=== PATIENT | female | born 1965 | race Caucasian/White ===

== ENCOUNTER 2017-03-15 11:47 | Observation (INO) ==
[2017-03-15] MEDS ORDERED: SALINE FLUSH 10ml SYRINGE IVF PRN (12:00)
--- NOTE | 2017-03-15 12:08 | Emergency Department Report ---
General Adult HPI - General Chief complaint: Medical Emergency Stated complaint: poss brain bleed Time Seen by Provider: 03/15/17 11:52 Source: patient Mode of arrival: ambulatory Limitations: no limitations - History of Present Illness HPI narrative: 51-year-old female presents to the emergency department with a chief complaint of pulling a patch of hair from the back of her head and causing bleeding. Patient was released from the [facility] earlier today. She denies any current pain or discomfort. She denies homicidal/suicidal ideation or plan. She denies self injury or self-harm other than the above. She does not note any exacerbating or remitting factors. She has no other complaints or associated symptoms. Patient was noted to be acting erratic in the waiting area. - Related Data Home Medications Medication Instructions Recorded Confirmed Buspirone [Buspar] 7.5 mg PO BID 03/15/17 03/15/17 FLUoxetine [Prozac] 20 mg PO DAILY 03/15/17 03/15/17 hydroCHLOROthiazide 12.5 mg PO HS 03/15/17 03/15/17 [Hydrochlorothiazide] Allergies Allergy/AdvReac Type Severity Reaction Status Date / Time No Known Allergies Allergy Verified 03/15/17 11:53 Review of Systems Constitutional: Denies: fever, chills Eyes: Denies: eye pain, vision change ENT: Denies: ear pain, throat pain Cardiovascular: Denies: chest pain, palpitations Respiratory: Denies: cough, dyspnea Gastrointestinal: Denies: abdominal pain, nausea, vomiting, diarrhea Genitourinary: Denies: urgency, dysuria Musculoskeletal: Denies: back pain, arthralgia Integumentary: Denies: erythema, rash Neurological: Denies: headache, numbness Psychiatric: Denies: anxiety, depression Endocrine: Denies: fatigue, heat or cold intolerance Hematological/Lymphatic: Denies: easy bleeding, easy bruising Allergic/Immunologic: Denies: facial swelling, urticaria PFSH Patient Stated Medical History Hypertension Yes: hx of Bipolar Disorder Yes Depression Yes Substance Use Disorder Yes Surgical History: Cardiac cath Family History: Reviewed and noncontributory. - Social History Smoking status: Current every day smoker Substance use type: former substance user Alcohol intake frequency: does not drink Physical Exam - Limitations Limitations: no limitations - General General appearance: alert, in no apparent distress - Normal Exams: Head:: Normocephalic without trauma Eyes:: Pupils are PERRLA w/ EOMI, No scleral icterus, irritation, or foreign bodies noted ENMT:: No facial trauma, nasal exudates, pharyngeal erythema, or exudates are noted Dental: No fractured, loose, or missing teeth noted Neck:: Full range of motion, without adenopathy, JVD, bruits or thyromegaly Chest/Respirations:: Clear all meier, with good airflow, and symmetry bilaterally Cardiovascular:: Regular rate and rhythm, without murmur or gallop, Pulses 2+ all extremities, capillary refill, <2 seconds all extremities Abdomen:: Bowel sounds positive, soft, non-tender, non-distended, no hepatosplenomegaly, masses or bruits noted Lymphatic:: No lymphadenopathy, or lymphedema noted Musculoskeletal:: No tenderness, or deformity noted, good range of motion, all extremities Integumentary:: No rashes, hives, or bruising noted, hair and nails, without abnormality Neurological:: Patient is alert, and oriented, cranial nerves, motor/sensory/ cerebellar, exams w/o gross deficits, to observation Psychiatric:: Patient exhibits (Restless. + Hallucinations. ) Course Vital Signs Temperature 98.1 F 03/15/17 11:53 Pulse Rate 89 03/15/17 11:53 Respiratory Rate 19 03/15/17 11:53 Blood Pressure 118/85 03/15/17 11:53 Pulse Oximetry 98 03/15/17 11:53 Temperature 98.4 F 03/17/17 17:27 Pulse Rate 100 03/17/17 17:27 Respiratory Rate 24 03/17/17 17:27 Blood Pressure 138/71 03/17/17 15:10 Pulse Oximetry 98 03/17/17 17:27 Medical Decision Making - [facility] Narrative Medical decision making narrative: Labs/imaging were discussed in detail with the patient and shot bagger and questions are answered. Patient did have a intracranial hemorrhage in approximately August or September of this year and did not follow up to ensure resolution or worsening of condition. Patient states that she is concerned that she may be having an other intracranial hemorrhage she did not follow-up for the 1st one. CT head was unremarkable. Patient is medically clear for further treatment and evaluation at a psychiatric facility as she appears to be acutely psychotic. Potassium was supplemented appropriately in the emergency department. Patient is not able to care for herself or meet her daily needs. Patient's shot bagger is present at bedside and in agreement. [facility] is contacted for screening of the patient at 1420. [facility] from [facility] makes it to the emergency department to screen the patient at approximately 1700. Patient is voluntary at this time and agrees to be [facility] after she [facility] on the wait list. At approximately 1840, [facility] reveals that the patient is far down on the wait list for [facility] and will possibly be in the emergency department until Saturday or Saturday. At this point the patient is admitted to the service of the hospitalist Dr. Everett after discussion with Dr. Ovalle. Patient is admitted to the hospital in improved condition. Patient is voluntary at this time. Patient was admitted to the medical floor at [address] Everett requested to have the night hospitalist take the admission. After being admitted to the hospital patient decided she was no longer voluntary and attempted to leave [facility]. [facility] was contacted and involuntary screen for [place] was processed. Patient is waiting for transfer to psychiatric hospital and is currently medically clear for further evaluation and treatment by a psychiatric facility. - Differential Diagnosis anxiety, acute psychosis, metabolic disorder, substance abuse - Lab Data Result diagrams: 03/15/17 12:07 03/16/17 09:03 Lab Results 03/15/17 03/15/17 03/15/17 Range/Units 12:07 12:07 14:06 WBC 11.3 H (4.5-11.0) T/MM3 RBC 4.06 (4.00-5.20) M/MM3 Hgb 13.2 (12-16) GM/DL Hct 35.8 L (36-46) % MCV 88.2 (80-100) UM3 MCH 32.5 (26-34) UUG MCHC 36.9 (31-37) GM/DL RDW Std Deviation 39.8 (36.9-50.2) FL Plt Count 399 (130-400) T/MM3 MPV 8.5 L (9.4-12.4) UM3 Immature Gran % (Auto) Not performed Neut % (Auto) Not performed Lymph % (Auto) Not performed [place] % (Auto) Not performed Eos % (Auto) Not performed Baso % (Auto) Not performed Neut # (Auto) Not performed Lymph # (Auto) Not performed [place] # (Auto) Not performed Eos # (Auto) Not performed Baso # (Auto) Not performed Abs Immat Gran (auto) Not performed Neutrophils % (Manual) 65.0 (33-66) % Band Neutrophils % 1.0 (0-6) % Lymphocytes % (Manual) 26.0 (23-45) % Monocytes % (Manual) 7.0 (0-9.0) % Eosinophils % (Manual) 1.0 (0-4) % Neutrophils # (Manual) 7.3 (1.8-7.7) T/MM3 Band Neutrophils # 0.1 T/MM3 Lymphocytes # (Manual) 2.9 (1-4.8) T/MM3 Monocytes # (Manual) 0.8 (0-0.8) T/MM3 Eosinophils # (Manual) 0.1 (0-0.5) T/MM3 RBC Morph Comment Normal Turbidity < 20 (0-20) Sodium 131 L (134-144) MEQ/L Potassium 3.0 L (3.6-5) MEQ/L Chloride 90 L (98-107) MEQ/L Carbon Dioxide 30 (22-30) MEQ/L Anion Gap 11 (5-15) MEQ/L BUN 7.0 (7-17) MG/DL Creatinine 0.6 L (0.7-1.2) MG/DL GFR Calculation 106 BUN/Creatinine Ratio 12 (6-26) RATIO Glucose 79 (65-110) MG/DL Calculated Osmolality 250 L (261-280) MOSM/KG Calcium 9.6 (8.4-10.2) MG/DL Total Bilirubin 0.70 (0.20-1.30) MG/DL Icterus Index < 2 (0-7) AST 95 H (14-36) U/L ALT 88 H (9-52) U/L Alkaline Phosphatase 63 (38-126) U/L Total Protein 7.4 (6.3-8.2) G/DL Albumin 4.6 (3.5-5.0) G/DL Globulin 2.8 (2.4-3.6) G/DL Albumin/Globulin Ratio 1.6 (1.1-2.2) RATIO TSH 0.36 L (0.47-4.68) MIU/L Specimen Hemolysis < 15 (0-25) Ur Collection Type Urine, clean catch Urine Color Yellow (YELLOW) Urine Clarity Sl cloudy Urine pH 6.0 (5.0-8.0) Ur Specific [place] <=1.005 L (1.015-1.025) Urine Protein Negative (NEGATIVE) Urine Glucose (UA) Negative (NEGATIVE) Urine Ketones 1+ A (NEGATIVE) Urine Occult Blood Negative (NEGATIVE) Urine Nitrate Negative (NEGATIVE) Urine Bilirubin Negative (NEGATIVE) Urine Urobilinogen 0.2 (NORMAL) EU/DL Ur Leukocyte Esterase Negative (NEGATIVE) Urinalysis Comment Microscopic not ind. Urine Test (Negative) Salicylates < 1.0 L (2-20) MG/DL Urine Opiates Screen ng/mL Ur Oxycodone Screen ng/mL Urine Methadone Screen ng/mL Ur Propoxyphene Screen ng/mL Acetaminophen < 10 L (10-30) UG/ML Ur Barbiturates Screen ng/mL U Tricyclic Antidepress ng/mL Ur Phencyclidine Scrn ng/mL Ur Amphetamines Screen ng/mL U Methamphetamines Scrn ng/mL U Benzodiazepines Scrn ng/mL Urine Cocaine Screen ng/mL U Cannabinoids Screen ng/mL Alcohol, Quantitative <10 (<10) MG/DL 03/15/17 03/15/17 Range/Units 14:06 14:06 WBC (4.5-11.0) T/MM3 RBC (4.00-5.20) M/MM3 Hgb (12-16) GM/DL Hct (36-46) % MCV (80-100) UM3 MCH (26-34) UUG MCHC (31-37) GM/DL RDW Std Deviation (36.9-50.2) FL Plt Count (130-400) T/MM3 MPV (9.4-12.4) UM3 Immature Gran % (Auto) Neut % (Auto) Lymph % (Auto) [place] % (Auto) Eos % (Auto) Baso % (Auto) Neut # (Auto) Lymph # (Auto) [place] # (Auto) Eos # (Auto) Baso # (Auto) Abs Immat Gran (auto) Neutrophils % (Manual) (33-66) % Band Neutrophils % (0-6) % Lymphocytes % (Manual) (23-45) % Monocytes % (Manual) (0-9.0) % Eosinophils % (Manual) (0-4) % Neutrophils # (Manual) (1.8-7.7) T/MM3 Band Neutrophils # T/MM3 Lymphocytes # (Manual) (1-4.8) T/MM3 Monocytes # (Manual) (0-0.8) T/MM3 Eosinophils # (Manual) (0-0.5) T/MM3 RBC Morph Comment Turbidity (0-20) Sodium (134-144) MEQ/L Potassium (3.6-5) MEQ/L Chloride (98-107) MEQ/L Carbon Dioxide (22-30) MEQ/L Anion Gap (5-15) MEQ/L BUN (7-17) MG/DL Creatinine (0.7-1.2) MG/DL GFR Calculation BUN/Creatinine Ratio (6-26) RATIO Glucose (65-110) MG/DL Calculated Osmolality (261-280) MOSM/KG Calcium (8.4-10.2) MG/DL Total Bilirubin (0.20-1.30) MG/DL Icterus Index (0-7) AST (14-36) U/L ALT (9-52) U/L Alkaline Phosphatase (38-126) U/L Total Protein (6.3-8.2) G/DL Albumin (3.5-5.0) G/DL Globulin (2.4-3.6) G/DL Albumin/Globulin Ratio (1.1-2.2) RATIO TSH (0.47-4.68) MIU/L Specimen Hemolysis (0-25) Ur Collection Type Urine Color (YELLOW) Urine Clarity Urine pH (5.0-8.0) Ur Specific [place] (1.015-1.025) Urine Protein (NEGATIVE) Urine Glucose (UA) (NEGATIVE) Urine Ketones (NEGATIVE) Urine Occult Blood (NEGATIVE) Urine Nitrate (NEGATIVE) Urine Bilirubin (NEGATIVE) Urine Urobilinogen (NORMAL) EU/DL Ur Leukocyte Esterase (NEGATIVE) Urinalysis Comment Urine Test Negative (Negative) Salicylates (2-20) MG/DL Urine Opiates Screen Negative ng/mL Ur Oxycodone Screen Negative ng/mL Urine Methadone Screen Negative ng/mL Ur Propoxyphene Screen Negative ng/mL Acetaminophen (10-30) UG/ML Ur Barbiturates Screen Negative ng/mL U Tricyclic Antidepress Negative ng/mL Ur Phencyclidine Scrn Negative ng/mL Ur Amphetamines Screen Negative ng/mL U Methamphetamines Scrn Negative ng/mL U Benzodiazepines Scrn Negative ng/mL Urine Cocaine Screen Negative ng/mL U Cannabinoids Screen Negative ng/mL Alcohol, Quantitative (<10) MG/DL - Radiology Data CT head: No acute processes. Disposition Clinical Impression: ACUTE PSYCHOSIS Disposition: 02 To [facility] Condition: Stable Time of Disposition: 18:30 (Admit. Dr. Joseph/Karlos.) - Seen By: physician
--- NOTE | 2017-03-15 14:38 | CT Scan Report ---
EXAM: CT head/brain wo con DATE: 03/15/2017 12:00 AM ENCOUNTER: Initial INDICATION: Hx bleeding COMPARISON: None available. TECHNIQUE: 5 mm axial tomographic images were obtained of the head without contrast. The current CT scan was performed using radiation dose-reduction techniques. FINDINGS: The tejeda-white matter junction is normal. No intra or extra-axial mass or hemorrhage is identified. There is no midline shift. Ventricles are normal in size, shape, and morphology. The basilar cisterns are patent. No acute osseous or soft tissue abnormality. The visualized paranasal sinuses are normal. The visualized portions of the orbits and globes are normal. The mastoid air cells are clear. IMPRESSION: No acute intracranial process identified by CT. .
[2017-03-15] MEDS ORDERED: ACETAMINOPHEN 500 MG TABLET PO PRN (18:00)
[2017-03-15] MEDS ORDERED: HALOPERIDOL 5 MG/ML INJECTION IVP PRN (20:45)
[2017-03-15] MEDS ORDERED: IBUPROFEN 600 MG TABLET PO PRN (20:45)
[2017-03-15] MEDS ORDERED: ONDANSETRON 4 MG/2 ML INJECTION IVP PRN (20:45)
[2017-03-15] MEDS ORDERED: HALOPERIDOL 5 MG/ML INJECTION IM SCH (20:45)
--- NOTE | 2017-03-15 20:48 | History & Physical Report ---
History of Present Illness Date: 03/15/17 Chief complaint: none by patient, confusion per police HPI: Please note that the patient was seen via telemedicine with nursing assistance on 03/15/2017 Ms. Vick is a 51yo woman with h/o ?schizoaffective disorder and polysubstance abuse with tobacco and amphetamines who presents from the police department where she was incarcerated for battery. She was released and brought to the ED , please see Dr. Titus's documentation. The patient has inconsistent answers to questions and is not currently cooperative. I was asked to urgently beam on to see her for combativeness/inability to cooperate and police are now present to ensure staff safety. When asked about pain, nausea, and sob she says " I have all of it." She cannot tell me the day of the week or even month, thinking it is the 11th month. In the ED she received tylenol and 40meq KCL. She cannot tell me how long she was in detention after the battery and charge. Note the patient denies hallucinations on my review, but she was talking to visual hallucinations in the ED. Review of Systems Review of systems: unable to completely obtain. [facility] Medical History Updates: schizoaffective disorder Surgical History: Cardiac cath Family History Updates: incomplete due to psychosis - Social History Smoking status: Current every day smoker Substance use type: methamphetamine Medications Home Medications Medication Instructions Recorded Confirmed Type Buspirone [Buspar] 7.5 mg PO BID 03/15/17 03/15/17 History FLUoxetine [Prozac] 20 mg PO DAILY 03/15/17 03/15/17 History hydroCHLOROthiazide 12.5 mg PO HS 03/15/17 03/15/17 History [Hydrochlorothiazide] Allergies Allergy/AdvReac Type Severity Reaction Status Date / Time No Known Allergies Allergy Verified 03/15/17 11:53 Exam Vital Signs: Temperature 98.1 F 03/15/17 11:53 Pulse Rate 112 H 03/15/17 19:48 Respiratory Rate 19 03/15/17 11:53 Blood Pressure 118/85 03/15/17 11:53 Pulse Oximetry 96 03/15/17 19:48 Telemetry Rhythm: Sinus Rhythm - Constitutional Present: well developed, thin, disheveled, combative, agitated - Routine HEENT Exam Head: Present: normocephalic Eye: Present: EOMI - Routine Neck Exam Present: full ROM - Routine Respiratory Exam Absent: accessory muscle use, respiratory distress - Routine Cardiovascular Exam Comments: cannot complete this nor most of the exam due to psychosis and combativeness - Routine Extremities Exam Absent: cyanosis, clubbing - Routine Skin Exam Comments: picking changes it appears by remote exam Results - Labs CBC & Chem 7: 03/15/17 12:07 03/15/17 12:07 Assessment and Plan (1) Schizoaffective disorder Current visit: Yes Status: Acute (2) Psychosis Current visit: Yes Status: Acute (3) Hypokalemia Current visit: Yes Status: Acute Assessment and Plan: 1. Acute psychosis with h/o likely schizoaffective disorder--obs admit as should go to [facility] once bed available. Haldol and Ativan IM now with restraints and sitter needed. No definite encephalopathy evident with no infection and UDS negative at this point. Order prior medications for now. 2. Hypokalemia with HCTZ for ? K supp and repeat AM labs 3. Abnormal TSH, check T4 as ? hyperthyroidism also. Hospital Course Summary Disclaimer: The visit summary below is not to be considered part of the above Progress Note.
[2017-03-15] MEDS: BUSPIRONE 5 MG TABLET PO SCH (21:00)
[2017-03-15] MEDS: NS with KCL 20 mEq 1,000 ML IV SCH (21:01)
[2017-03-15] MEDS ORDERED: HALOPERIDOL 5 MG/ML INJECTION IM PRN (22:56)
[2017-03-15] MEDS ORDERED: HALOPERIDOL 0.5 MG TABLET PO PRN (23:02)
[2017-03-16 01:20] VITALS: BMI 20.3
[2017-03-16] MEDS ORDERED: HALOPERIDOL 5 MG/ML INJECTION IM ONE (06:30)
[2017-03-16] MEDS: NS with KCL 20 mEq 1,000 ML IV SCH (06:43)
[2017-03-16] MEDS: BUSPIRONE 5 MG TABLET PO SCH ×2 (10:12→21:10)
[2017-03-16] MEDS: FLUoxetine 20 MG CAPSULE PO SCH (10:12)
[2017-03-16] MEDS: ACETAMINOPHEN 325 MG TABLET PO PRN (10:13)
[2017-03-16] MEDS ORDERED: HALOPERIDOL 1 MG TABLET PO PRN (14:15)
[2017-03-16] MEDS: HALOPERIDOL 1 MG TABLET PO PRN (14:17)
[2017-03-16] MEDS: NICOTINE 21 MG PATCH TD SCH (14:17)
[2017-03-17] MEDS: HALOPERIDOL 1 MG TABLET PO PRN ×2 (03:43→13:37)
[2017-03-17] MEDS: NICOTINE 21 MG PATCH TD SCH (09:47)
[2017-03-17] MEDS: BUSPIRONE 5 MG TABLET PO SCH ×2 (09:47→21:40)
[2017-03-17] MEDS: FLUoxetine 20 MG CAPSULE PO SCH (09:47)
[2017-03-17] MEDS: NICOTINE PATCH REMOVAL TD SCH (09:48)
--- NOTE | 2017-03-17 11:51 | Progress Note ---
- Date 03/17/17 Subjective: Patient sitting in bed. Sitter present. She had one dose of 1 mg Haldol after c/ o anxiety overnight. Wants to know when she can leave. Objective Vital signs: Temperature 95.5 F L 03/17/17 07:00 Pulse Rate 87 03/17/17 07:00 Respiratory Rate 22 03/17/17 07:00 Blood Pressure 132/83 03/17/17 07:00 Pulse Oximetry 98 03/17/17 07:00 Height/Weight/BMI: Height 5 ft 7 in Weight 56.1 kg Body Mass Index 20.3 - Constitutional Present: well nourished, well developed - Routine HEENT Exam Eye: Present: EOMI ENT: Present: mucous membranes moist, dentition normal - Routine Respiratory Exam Present: CTA bilaterally. Absent: wheezes - Routine Cardiovascular Exam Present: RRR. Absent: murmur - Routine Abdominal Exam Present: soft, normoactive bowel sounds, non distended. Absent: tenderness - Routine Extremities Exam Present: normal capillary refill - Routine Skin Exam Present: dry, warm - Routine Neurological Exam Present: alert, oriented X3, CN II-XII intact - Routine Psychiatric Exam Present: anxious Results - Labs CBC & Chem 7: 03/15/17 12:07 03/16/17 09:03 Assessment and Plan (1) Schizoaffective disorder Current visit: Yes Status: Acute (2) Psychosis Current visit: Yes Status: Acute (3) Hypokalemia Current visit: Yes Status: Acute Assessment and Plan: psychosis schizoaffective d/o bipolar d/o hypokalemia abnormal TSH Plan: Haldol and ativan prn. Buspar, prozac scheduled. Dr. Martinez consulted. [facility] has screened and supports involuntary hold. Awaiting bed at [place]. K 3.7 on last lab. Free T4 pending. Medically stable for dismissal Hospital Course Summary Disclaimer: The visit summary below is not to be considered part of the above Progress Note. Hospital Course: 03/17/17 11:57 psychosis schizoaffective d/o bipolar d/o hypokalemia abnormal TSH Plan: Haldol and ativan prn. Buspar, prozac scheduled. Dr. Martinez consulted. [facility] has screened and supports involuntary hold. Awaiting bed at [place]. K 3.7 on last lab. Free T4 pending. Medically stable for dismissal
--- NOTE | 2017-03-17 12:10 | Neuropsychiatric Consult ---
[facility] HPI Date: 03/17/17 Reason for Consultation: Psychosis Start Time: 11:30 Stop Time: 12:00 History of Present Illness: HPI: 51 Y/O CF sent from the prison for increasing psychosis. PT reportedly was responding to internal stimuli on admission and was combative. Attempted to elope at one point. On face to face the pt states she is here because she has a brain bleed and "I can feel it dripping". She states this brain bleed causes confusion and memory impairment. She is some what disorganized and is not able to give a good hx. She denies any S/I but has poor insight into her illness. STRESSORS: "Brain bleed". She reports she has legal issues and has poor support. PSYCH ROS; PT denies feeling depressed but states "I cry alot". She states she does feel anxious at times and becomes visibly anxious when asked about past trauma in her life. PT is paranoid and states "people" are trying to put her in prison and drum up charges against her although she will not elaborate. She reports AH at times. She is disorganized and again difficult to obtain a good hx. PAST PSYCH: PT states she has had numerous hospitalizations since the age of 20 for "psychosis". She has been to [facility] in the past but can not give me any other info. She states she is seen at [facility] where she has a egg caser. SUBSTANCE ABUSE: PT states she has done numerous drugs in the past but has been clean since April but again is vague andnot forth coming about her drug use. [facility] Medical History Updates: schizoaffective disorder Surgical History: Cardiac cath - Social History Smoking status: Current every day smoker Substance use type: former substance user Review of Systems - Psychiatric Psychiatric: Present: anxiety, auditory hallucinations, behavioral changes, depression, paranoia Mental Status Exam Vitals: Last Vital Signs Temp 95.5 F L 03/17/17 07:00 Pulse 87 03/17/17 07:00 Resp 22 03/17/17 07:00 BP 132/83 03/17/17 07:00 Pulse Ox 98 03/17/17 07:00 Height: 1.7 m Weight: 56.1 kg - Mental Status Exam Muscle Strength/Tone: Normal Dressing: Casual Grooming: Good Attitude: Guarded Motor Activity: Retardation Eye Contact: Poor Speech: Slowed Volume: Soft Rhythm: Appropriate Rhythm Orientation: Oriented X4 Mood: Anxious Affect: Anxious Rate of Thoughts: Delayed Thought Organization: Disorganized Associations: Flight of Ideas Abstract Reasoning: Poor abstract reasoning Thought Content: Delusions, Paranoia Perception/Psychotic: Psychotic Current Hallucinations: Auditory Language: Naming Intact Fund of Knowledge: Poor fund of knowledge Memory: Grossly Intact Suicidal Ideation: None Homicidal Ideation: None Insight: Poor Judgement: Poor Impulse Control: Poor - Laboratory Result Diagrams: 03/15/17 12:07 03/16/17 09:03 Assessment and Plan (1) Unspecified schizophrenia, chronic condition with acute exacerbation Current visit: Yes Status: Acute Continue medical management. Pt will need IP psych treatment when deemed medically stable. PT should not be allowed to leave AMA. Would continue current psychiatric meds.
[2017-03-17] MEDS: LORazepam 1 MG TABLET PO PRN (16:02)
[2017-03-17] MEDS: ACETAMINOPHEN 325 MG TABLET PO PRN (17:00)
[2017-03-18] MEDS: NICOTINE 21 MG PATCH TD SCH (08:16)
[2017-03-18] MEDS: BUSPIRONE 5 MG TABLET PO SCH ×2 (08:16→20:39)
[2017-03-18] MEDS: FLUoxetine 20 MG CAPSULE PO SCH (08:16)
[2017-03-18] MEDS: NICOTINE PATCH REMOVAL TD SCH (08:17)
[2017-03-18] MEDS: ALBUTEROL 2.5mg/3ml (0.083%) NEB AEROSOL PRN (10:07)
[2017-03-18] MEDS: LORazepam 1 MG TABLET PO PRN ×2 (13:26→20:39)
--- NOTE | 2017-03-18 16:12 | Progress Note ---
- Date 03/18/17 Subjective: Gaye is pacing in her room. She has been for several walks with staff. She c/o soa earlier and told staff she has an inhaler for COPD at home. She asks to leave. When reminded about the plan for inpatient treatment, she offers to go to [facility] Objective Vital signs: Temperature 97.3 F 03/18/17 15:26 Pulse Rate 98 03/18/17 15:26 Respiratory Rate 18 03/18/17 15:26 Blood Pressure 144/80 H 03/18/17 15:26 Pulse Oximetry 97 03/18/17 15:26 Height/Weight/BMI: Height 5 ft 7 in Weight 59.1 kg Body Mass Index 20.3 - Constitutional Present: well nourished, well developed - Routine HEENT Exam Eye: Present: EOMI ENT: Present: mucous membranes moist, dentition normal - Routine Respiratory Exam Present: CTA bilaterally. Absent: wheezes - Routine Cardiovascular Exam Present: RRR. Absent: murmur - Routine Abdominal Exam Present: soft, normoactive bowel sounds, non distended. Absent: tenderness - Routine Extremities Exam Present: normal capillary refill - Routine Skin Exam Present: dry, warm - Routine Neurological Exam Present: alert, oriented X3, CN II-XII intact - Routine Psychiatric Exam Present: anxious Results - Labs CBC & Chem 7: 03/15/17 12:07 03/16/17 09:03 Assessment and Plan (1) Schizoaffective disorder Current visit: Yes Status: Acute (2) Psychosis Current visit: Yes Status: Acute (3) Hypokalemia Current visit: Yes Status: Acute Assessment and Plan: psychosis schizoaffective d/o bipolar d/o hypokalemia abnormal TSH tobacco abuse COPD Plan: Haldol and ativan prn. Buspar, prozac scheduled. Dr. Martinez consulted. [facility] has screened and supports involuntary hold. Awaiting bed at [place]. K 3.7 on last lab. Free T4 is wnl. Nicotine patch available. Albuterol prn. Can be dismissed with inhaler. Medically stable for dismissal Hospital Course Summary Disclaimer: The visit summary below is not to be considered part of the above Progress Note. Hospital Course: 03/17/17 11:57 psychosis schizoaffective d/o bipolar d/o hypokalemia abnormal TSH Plan: Haldol and ativan prn. Buspar, prozac scheduled. Dr. Martinez consulted. [facility] has screened and supports involuntary hold. Awaiting bed at [place]. K 3.7 on last lab. Free T4 pending. Medically stable for dismissal 03/18/17 16:15 psychosis schizoaffective d/o bipolar d/o hypokalemia abnormal TSH tobacco abuse COPD Plan: Haldol and ativan prn. Buspar, prozac scheduled. Dr. Martinez consulted. [facility] has screened and supports involuntary hold. Awaiting bed at [place]. K 3.7 on last lab. Free T4 is wnl. Nicotine patch available. Albuterol prn. Can be dismissed with inhaler. Medically stable for dismissal
[2017-03-18] MEDS ORDERED: INHALER ASSIST DEVICE (Optichamber) MC ONE (17:45)
--- NOTE | 2017-03-18 18:06 | Neuropsych Progress Note ---
[facility] Subjective Date: 03/18/17 - Sujective/Severity of Illness Medications: Acetaminophen (Tylenol) 325 - 650 mg PO Q5H PRN PRN Reason: Discomfort Last Admin: 03/17/17 17:00 Dose: 650 mg Albuterol Sulfate (Proventil Neb (0.083%)) 2.5 mg AEROSOL Q4H PRN Last Admin: 03/18/17 10:07 Dose: 2.5 mg Albuterol Sulfate (Ventolin Hfa) 2 puff ORAL INH Q4HR PRN PRN Reason: Shortness of air/wheezing Buspirone HCl (Buspar) 7.5 mg PO BID [facility] Last Admin: 03/18/17 08:16 Dose: 7.5 mg Fluoxetine HCl (Prozac) 20 mg PO DAILY [facility] Last Admin: 03/18/17 08:16 Dose: 20 mg Haloperidol (Haldol) 1 mg PO Q6H PRN PRN Reason: agitation, halucinations Last Admin: 03/17/17 13:37 Dose: 1 mg Haloperidol Lactate (Haldol) 2 mg IVP Q1HR PRN Haloperidol Lactate (Haldol) 5 mg IM Q4H PRN Ibuprofen (Motrin) 600 mg PO Q6H PRN PRN Reason: Pain Lorazepam (Ativan Inj) 0.5 mg IM Q4H PRN Lorazepam (Ativan) 1 mg PO Q4H PRN Last Admin: 03/18/17 13:26 Dose: 1 mg Magnesium Hydroxide (Mom) 30 ml PO DAILY PRN PRN Reason: Constipation Last Admin: 03/16/17 14:17 Dose: 30 ml Nicotine (Nicoderm) 21 mg TD DAILY [facility] Last Admin: 03/18/17 08:16 Dose: 21 mg Nicotine (Nicotine Patch Removal) 1 removal TD DAILY [facility] Last Admin: 03/18/17 08:17 Dose: 1 removal Ondansetron HCl (Zofran) 4 mg IVP Q6H PRN PRN Reason: Nausea &/or vomiting Sodium Chloride (Iv Flush) 10 - 80 ml IVF PRN PRN PRN Reason: Flushing Subjective: Pt seen and chart examined. Nursing reports pt has been pacing in her room and is on one to one. On face to face the pt remains disorganized and appears anxious. She is pacing in her room. She denies S/I but remains psychotic . Start Time: 18:00 Stop Time: 18:15 Mental Status Exam Vitals: Last Vital Signs Temp 97.3 F 03/18/17 15:26 Pulse 98 03/18/17 15:26 Resp 18 03/18/17 15:26 BP 144/80 H 03/18/17 15:26 Pulse Ox 97 03/18/17 15:26 Height: 1.7 m Weight: 59.1 kg - Mental Status Exam Muscle Strength/Tone: Normal Dressing: Casual Grooming: Good Attitude: Guarded Motor Activity: Retardation Eye Contact: Poor Speech: Slowed Volume: Soft Rhythm: Appropriate Rhythm Orientation: Oriented X4 Mood: Anxious Rate of Thoughts: Delayed Thought Organization: Disorganized Associations: Flight of Ideas Abstract Reasoning: Poor abstract reasoning Thought Content: Delusions, Paranoia Perception/Psychotic: Psychotic Current Hallucinations: Auditory Language: Naming Intact Fund of Knowledge: Poor fund of knowledge Memory: Grossly Intact Suicidal Ideation: None Homicidal Ideation: None Insight: Poor Judgement: Poor Impulse Control: Poor - Laboratory Result Diagrams: 03/15/17 12:07 03/16/17 09:03 Assessment and Plan (1) Unspecified schizophrenia, chronic condition with acute exacerbation Current visit: Yes Status: Acute Hospital Course Summary Disclaimer: The visit summary below is not to be considered part of the above Progress Note. Hospital Course: 03/17/17 11:57 psychosis schizoaffective d/o bipolar d/o hypokalemia abnormal TSH Plan: Haldol and ativan prn. Buspar, prozac scheduled. Dr. Martinez consulted. Robert Beckett has screened and supports involuntary hold. Awaiting bed at [place]. K 3.7 on last lab. Free T4 pending. Medically stable for dismissal 03/18/17 16:15 psychosis schizoaffective d/o bipolar d/o hypokalemia abnormal TSH tobacco abuse COPD Plan: Haldol and ativan prn. Buspar, prozac scheduled. Dr. Martinez consulted. Robert Beckett has screened and supports involuntary hold. Awaiting bed at [place]. K 3.7 on last lab. Free T4 is wnl. Nicotine patch available. Albuterol prn. Can be dismissed with inhaler. Medically stable for dismissal 03/18/17 18:04 Will start Seroquel 25mg PO TID to help with anxiety and restlessness. Would try to limit use of Haldol as it may cause akathisia and lead to restlessness and pacing
[2017-03-18] MEDS: QUETIAPINE 25 MG TABLET PO SCH (20:39)
[2017-03-19] MEDS: FLUoxetine 20 MG CAPSULE PO SCH (08:14)
[2017-03-19] MEDS: BUSPIRONE 5 MG TABLET PO SCH ×2 (08:14→20:15)
[2017-03-19] MEDS: QUETIAPINE 25 MG TABLET PO SCH ×3 (08:14→20:15)
[2017-03-19] MEDS: NICOTINE 21 MG PATCH TD SCH (08:14)
[2017-03-19] MEDS: NICOTINE PATCH REMOVAL TD SCH (08:15)
[2017-03-19] MEDS: LORazepam 1 MG TABLET PO PRN (10:22)
--- NOTE | 2017-03-19 13:03 | Progress Note ---
<Swati Arcos D - Last Filed: 03/19/17 13:00> - Date 03/19/17 Subjective: Gaye has been walking through the halls this am with her nurse; when I stopped by her room she was lying on her back on the bed with her feet straight up in the air. She states that her breathing is better but wants to use an inhaler now. She hasn't been coughing much. She states that she's been eating and drinking well. Objective Vital signs: Temperature 97.3 F 03/19/17 07:13 Pulse Rate 100 03/19/17 07:13 Respiratory Rate 18 03/19/17 07:13 Blood Pressure 129/81 03/19/17 07:13 Pulse Oximetry 97 03/19/17 07:13 Height/Weight/BMI: Height 1.7 m Weight 59.7 kg Body Mass Index 20.3 - Constitutional Present: no acute distress, well nourished, well developed, thin - Routine HEENT Exam Head: Present: normocephalic - Routine Respiratory Exam Present: CTA bilaterally (pt occasionally made some laryngeal/upper airway noises making it more difficult to ausculate). Absent: respiratory distress - Routine Cardiovascular Exam Present: RRR, S1, S2 - Routine Abdominal Exam Present: soft, normoactive bowel sounds - Routine Extremities Exam Present: no edema - Routine Skin Exam Present: intact, dry, warm - Routine Neurological Exam Present: alert, oriented X3 - Routine Psychiatric Exam Present: cooperative Results - Labs CBC & Chem 7: 03/15/17 12:07 03/16/17 09:03 Assessment and Plan (1) Schizoaffective disorder Current visit: Yes Status: Acute (2) Psychosis Current visit: Yes Status: Acute (3) Hypokalemia Current visit: Yes Status: Acute Assessment and Plan: IMPRESSION psychosis schizoaffective d/o bipolar d/o hypokalemia abnormal TSH tobacco abuse COPD PLAN Appreciate Dr. Martinez's recommendations: start Seroquel 25mg PO TID to help with anxiety and restlessness; limit use of Haldol (may cause akathisia and lead to restlessness and pacing) VSS. Breathing treatments PRN. neonatal social worker has been working on discharge: she is 8th on the list for [facility]; also checking [place] regarding status. Hospital Course Summary Disclaimer: The visit summary below is not to be considered part of the above Progress Note. Hospital Course: 03/17/17 11:57 psychosis schizoaffective d/o bipolar d/o hypokalemia abnormal TSH Plan: Haldol and ativan prn. Buspar, prozac scheduled. Dr. Matrinez consulted. Robert Beckett has screened and supports involuntary hold. Awaiting bed at [place]. K 3.7 on last lab. Free T4 pending. Medically stable for dismissal 03/18/17 16:15 psychosis schizoaffective d/o bipolar d/o hypokalemia abnormal TSH tobacco abuse COPD Plan: Haldol and ativan prn. Buspar, prozac scheduled. Dr. Martinez consulted. Robert Beckett has screened and supports involuntary hold. Awaiting bed at [place]. K 3.7 on last lab. Free T4 is wnl. Nicotine patch available. Albuterol prn. Can be dismissed with inhaler. Medically stable for dismissal 03/18/17 18:04 Will start Seroquel 25mg PO TID to help with anxiety and restlessness. Would try to limit use of Haldol as it may cause akathisia and lead to restlessness and pacing 03/19/17 13:[address] Martinez's recommendations: start Seroquel 25mg PO TID to help with anxiety and restlessness; limit use of Haldol (may cause akathisia and lead to restlessness and pacing) neonatal social worker has been working on discharge: she is 8th on the list for [facility]; also checking [place] regarding status. <Joe Garcia D - Last Filed: 03/19/17 13:48> - Date 03/19/17 Objective Vital signs: Temperature 97.3 F 03/19/17 07:13 Pulse Rate 100 03/19/17 07:13 Respiratory Rate 16 03/19/17 13:10 Blood Pressure 129/81 03/19/17 07:13 Pulse Oximetry 98 03/19/17 13:10 Height/Weight/BMI: Height 1.7 m Weight 59.7 kg Body Mass Index 20.3 Results - Labs CBC & Chem 7: 03/15/17 12:07 03/16/17 09:03 Assessment and Plan (1) Schizoaffective disorder Current visit: Yes Status: Acute (2) Psychosis Current visit: Yes Status: Acute (3) Hypokalemia Current visit: Yes Status: Acute Assessment and Plan: IMPRESSION Psychosis Schizoaffective d/o Bipolar d/o Hypokalemia (POA) - resolved Hyponatremia (POA) - resolved Abnormal TSH - euthyroid sick Tobacco abuse COPD Have independently interviewed and examined pt. Chart reviewed. Case discussed with CM and my INTERIOR DESIGN TEACHER. Care plan developed with my supervision; agree with above. Doing okay. Restless and pacing-wants to go home. Breathing well-no SOA or congested. No chest pain. Eating okay; no nausea or ab pain. Ambulating well- not feeling dizzy, weak, or unsteady when up and about. Lungs: decreased, no distress CV: tachy, regular AB: soft nt/nd EXT: no edema MSE: awake alert Plan: Continue with current psychiatric medications. Continue safe, supportive environment-awaking definitive psychiatric hospitalization. Medically doing well. DVT Prophylaxis: other (Ambulation ) Resuscitation Status: Full Code Hospital Course Summary Disclaimer: The visit summary below is not to be considered part of the above Progress Note.
[2017-03-19] MEDS: ALBUTEROL 2.5mg/3ml (0.083%) NEB AEROSOL PRN (13:08)
[2017-03-19] MEDS: HALOPERIDOL 1 MG TABLET PO PRN (13:49)
[2017-03-20] MEDS: ACETAMINOPHEN 325 MG TABLET PO PRN (01:30)
[2017-03-20] MEDS: LORazepam 1 MG TABLET PO PRN ×2 (03:55→11:22)
[2017-03-20 07:03] VITALS: BP 120/78; PULSE 83; RESP 16; TEMP 97; O2SAT 98
[2017-03-20] MEDS: BUSPIRONE 5 MG TABLET PO SCH (08:46)
[2017-03-20] MEDS: FLUoxetine 20 MG CAPSULE PO SCH (08:48)
[2017-03-20] MEDS: QUETIAPINE 25 MG TABLET PO SCH (08:48)
[2017-03-20] MEDS: NICOTINE 21 MG PATCH TD SCH (08:49)
--- NOTE | 2017-03-20 10:26 | Progress Note ---
- Date 03/20/17 Subjective: F/U: Psychosis, Schizoaffective d/o, COPD Doing well this morning. Ambulating well-not feeling dizzy or unsteady when up. Restless and likes walking in halls to help decrease her restlessness. Eating well. Stools moving. Breathing well on RA. Would like a cigarette, but understands our no smoking policy. Agreeable with going for inpatient psychiatric treatment. Objective Vital signs: Temperature 97.0 F 03/20/17 07:00 Pulse Rate 83 03/20/17 07:00 Respiratory Rate 16 03/20/17 07:00 Blood Pressure 120/78 03/20/17 07:00 Pulse Oximetry 98 03/20/17 07:00 Height/Weight/BMI: Height 1.7 m Weight 58.8 kg Body Mass Index 20.3 - Constitutional Present: no acute distress, well nourished, well developed, average body habitus , cooperative. Absent: combative, agitated, somnolent - Routine HEENT Exam Head: Present: normocephalic, atraumatic Eye: Present: EOMI, PERRL ENT: Present: mucous membranes moist - Routine Respiratory Exam Present: decreased breath sounds. Absent: rales, respiratory distress, rhonchi , wheezes, crackles - Routine Cardiovascular Exam Present: RRR, no murmur - Routine Abdominal Exam Present: soft, normoactive bowel sounds, non distended, non tender. Absent: guarding - Routine Extremities Exam Present: cyanosis, clubbing, no edema, pulses intact - Routine Musculoskeletal Exam Musculoskeletal: Present: no clubbing or cyanosis, normal strength - Routine Skin Exam Present: intact, warm - Routine Neurological Exam Present: alert, oriented X3, CN II-XII intact, moving all extremities, normal tone, vision grossly intact, hearing grossly intact. Absent: motor deficit, altered mental status - Routine Psychiatric Exam Present: normal affect, cooperative. Absent: anxious, agitated, manic Results - Labs CBC & Chem 7: 03/15/17 12:07 03/16/17 09:03 Assessment and Plan (1) Schizoaffective disorder Current visit: Yes Status: Acute (2) Psychosis Current visit: Yes Status: Acute (3) Hypokalemia Current visit: Yes Status: Acute Assessment and Plan: IMPRESSION Psychosis Schizoaffective d/o Bipolar d/o Hypokalemia (POA) - resolved Hyponatremia (POA) - resolved Abnormal TSH - euthyroid sick Tobacco abuse COPD Plan Have discusses case with psychiatry at [facility]. Medically stable for inpatient psychiatric treatment. Will discharge for psychiatric care. Continue chronic medications. Definitive outpatient follow up with be made at time of discharge from [facility]. See orders for details. DVT Prophylaxis: other (Ambulation ) Resuscitation Status: Full Code Hospital Course Summary Disclaimer: The visit summary below is not to be considered part of the above Progress Note. Hospital Course: 03/17/17 Admission Psychosis Schizoaffective d/o Bipolar d/o Hypokalemia Abnormal TSH Observational Admission due to psychosis. Haldol and Ativan prn. BuSgomez Prozac scheduled. Dr. Martinez consulted. Robert Beckett has screened and supports involuntary hold. Awaiting bed at [place]. K 3.7 on last lab. Free T4 is wnl. Nicotine patch available. Albuterol prn. Can be dismissed with inhaler. Medically stable for dismissal 03/18/17 Will start Seroquel 25mg PO TID to help with anxiety and restlessness. Would try to limit use of Haldol as it may cause akathisia and lead to restlessness and pacing 03/19/[address] Martinez's recommendations. platform worker has been working on discharge: she is 8th on the list for [facility]; also checking [facility] regarding status. Medically doing well. 03/20/17 Have discusses case with psychiatry at [facility]. Medically stable for inpatient psychiatric treatment. Will discharge for psychiatric care. Continue chronic medications. Definitive outpatient follow up with be made at time of discharge from [place]. See orders for details.
--- NOTE | 2017-03-20 11:14 | Discharge Summary ---
Discharge Information Date of admission: 03/15/17 19:17 Anticipated date of discharge: 03/20/17 Attending Physician: Joe Garcia MD Consults: Physician Consult: Lilly Martinez Reason For Exam: psychosis - Discharge Diagnosis (1) Psychosis Status: Acute (2) Schizoaffective disorder Status: Acute (3) Hypokalemia Status: Acute Discharge diagnosis Psychosis Associated conditions and complications Schizoaffective d/o Bipolar d/o Hypokalemia (POA) - resolved Hyponatremia (POA) - resolved Abnormal TSH - euthyroid sick Tobacco abuse COPD - Laboratory Labs: Admit Lab 03/15/17 12:07 WBC 11.3 H Hgb 13.2 Hct 35.8 L MCV 88.2 Plt Count 399 Neutrophils % (Manual) 65.0 Band Neutrophils % 1.0 Lymphocytes % (Manual) 26.0 Monocytes % (Manual) 7.0 Eosinophils % (Manual) 1.0 Admit Lab 03/15/17 03/15/17 12:07 12:07 Sodium 131 L Potassium 3.0 L Chloride 90 L Carbon Dioxide 30 Anion Gap 11 BUN 7.0 Creatinine 0.6 L GFR Calculation 106 BUN/Creatinine Ratio 12 Glucose 79 Calculated Osmolality 250 L Calcium 9.6 Icterus Index < 2 AST 95 H ALT 88 H TSH 0.36 L Free T4 1.62 Admit Lab 03/15/17 03/15/17 14:06 14:06 Urine Color Yellow Urine Clarity Sl cloudy Urine pH 6.0 Ur Specific [place] <=1.005 L Urine Protein Negative Urine Glucose (UA) Negative Urine Ketones 1+ A Urine Occult Blood Negative Urine Nitrate Negative Urine Bilirubin Negative Urine Urobilinogen 0.2 Ur Leukocyte Esterase Negative Urinalysis Comment Microscopic not ind. Urine Test Negative Admit Lab 03/15/17 03/15/17 12:07 14:06 Salicylates < 1.0 L Urine Opiates Screen Negative Ur Oxycodone Screen Negative Urine Methadone Screen Negative Ur Propoxyphene Screen Negative Acetaminophen < 10 L Ur Barbiturates Screen Negative U Tricyclic Antidepress Negative Ur Phencyclidine Scrn Negative Ur Amphetamines Screen Negative U Methamphetamines Scrn Negative U Benzodiazepines Scrn Negative Urine Cocaine Screen Negative U Cannabinoids Screen Negative Alcohol, Quantitative <10 03/16/17 09:03 - Radiology Radiology: Date of Exam: 03/15/17 EXAM: CT head/brain wo con FINDINGS: The tejeda-white matter junction is normal. No intra or extra-axial mass or hemorrhage is identified. There is no midline shift. Ventricles are normal in size, shape, and morphology. The basilar cisterns are patent. No acute osseous or soft tissue abnormality. The visualized paranasal sinuses are normal. The visualized portions of the orbits and globes are normal. The mastoid air cells are clear. IMPRESSION: No acute intracranial process identified by CT. History of Present Illness HPI: Ms. Vick is a 51yo woman with h/o ?schizoaffective disorder and polysubstance abuse with tobacco and amphetamines who presents from the police department where she was incarcerated for battery. She was released and brought to the ED , please see Dr. Titus's documentation. The patient has inconsistent answers to questions and is not currently cooperative. I was asked to urgently beam on to see her for combativeness/inability to cooperate and police are now present to ensure staff safety. When asked about pain, nausea, and sob she says " I have all of it." She cannot tell me the day of the week or even month, thinking it is the 11th month. In the ED she received tylenol and 40meq KCL. She cannot tell me how long she was in [facility] after the battery and charge. Note the patient denies hallucinations on my review, but she was talking to visual hallucinations in the ED. For complete details of the H&P refer to that document. Objective Vital signs: Temperature 97.0 F 03/20/17 07:00 Pulse Rate 83 03/20/17 07:00 Respiratory Rate 16 03/20/17 07:00 Blood Pressure 120/78 03/20/17 07:00 Pulse Oximetry 98 03/20/17 07:00 Height/Weight/BMI: Height 1.7 m Weight 58.8 kg Body Mass Index 20.3 Hospital Course This is a general summary of the patient's hospital course. For more details refer to the complete medical record. Hospital course: 03/17/17 Admission Psychosis Schizoaffective d/o Bipolar d/o Hypokalemia Abnormal TSH Observational Admission due to psychosis. Haldol and Ativan prn. BuSgomez Prozac scheduled. Dr. Martinez consulted. Robert Beckett has screened and supports involuntary hold. Awaiting bed at [facility]. K 3.7 on last lab. Free T4 is wnl. Nicotine patch available. Albuterol prn. Can be dismissed with inhaler. Medically stable for dismissal 03/18/17 Will start Seroquel 25mg PO TID to help with anxiety and restlessness. Would try to limit use of Haldol as it may cause akathisia and lead to restlessness and pacing 03/19/[address] Martinez's recommendations. pond worker has been working on discharge: she is 8th on the list for [facility]; also checking [facility] regarding status. Medically doing well. 03/20/17 Have discusses case with psychiatry at [facility]. Medically stable for inpatient psychiatric treatment. Will discharge for psychiatric care. Continue chronic medications. Definitive outpatient follow up with be made at time of discharge from [facility]. See orders for details. Time spent with patient: discharge greater than 30 minutes DVT Prophylaxis: other (Ambulatory ) Discharge Plan - Discharge Disposition Discharge Date: 03/20/17 Disposition: 65 To Psych Hosp/Unit *Condition: Stable *Reason For Visit: acute psychosis - Discharge Medications *Discharge Medications: New Nicotine Patch [Nicoderm] 21 mg TD DAILY patch Quetiapine [Seroquel] 25 mg PO TID tablet Milk of Magnesia [Mom] 30 ml PO DAILY PRN udc PRN Reason: Constipation Acetaminophen [Tylenol] 325 - 650 mg PO Q5H PRN tablet PRN Reason: Discomfort LORazepam [Ativan] 1 mg PO Q4H PRN tablet PRN Reason: Agitation/Restlessness Nicotine Patch Removal 1 removal TD DAILY patch Continue Buspirone [Buspar] 7.5 mg PO BID Albuterol HFA Inhaler [Ventolin Hfa 90 mcg/actuation] 2 puff ORAL INH Q4HR PRN PRN Reason: Shortness Of Air/Wheezing FLUoxetine [Prozac] 20 mg PO DAILY hydroCHLOROthiazide [Hydrochlorothiazide] 12.5 mg PO HS - Discharge Packet/Instructions *Diet: regular *Activity: as tolerated *Pain Management/Treatment: Tylenol as needed *Wound Care: N/A *Expected Signs/Symptoms: Improvement of psychiatric status *Notify Physician if: Temp >100.4. Increase cough or congestion. *During Business Hours Contact: Nursing staff at OSH *After Business Hours Contact: Nursing staff at OSH *Pending Lab/Results: No Pending Lab - Referrals/Follow Up - Patient Handouts - Dismissal Complete Discharge Instructions are:: Complete
== END 2017-03-20 14:20 ==
LOC: ED 11:47 → MED 11:47 → SUATTDRO 19:17 → MED 19:48
PROVIDERS: ADMIT Hospitalist; ATTEND Hospitalist